=== PATIENT | female | born 1955 | race Caucasian/White ===

== ENCOUNTER 2024-03-25 16:11 | Observation (INO) ==
--- NOTE | 2024-03-25 17:20 | DR.H&P ---
H&P History & Physical for Day of: H&P Date: 03/25/24 Chief Complaint Chief Complaint: Patient is a 68 year old female that is a direct admit to [facility] secondary to COPD exacerbation. Patient reports increasing shortness of breath despite on 2L NC while in office. Patient reports using nebulizer at home with her continuous oxygen therapy. Reports shortness of breath while at rest. Patient will be admitted for further evaluation. Past Medical History Past Medical History: Anemia, Angina, Anxiety, Arthritis, CHF, Coronary Artery Disease, Depression, Dyslipidemia, Migraines, Headaches, Hypertension, Hypothyroidism, Kidney Stones, Liver Disease and DE Past Surgical History Surgical History: Hysterectomy Family History Family Medical History: Diabetes Mellitus, Cancer, DE, Coronary Artery Disease, Heart Failure and Hypertension Medications Home Medications: Home Medications Medication Instructions Recorded Confirmed Type Carvedilol [Coreg] 6.25 mg PO BID 06/19/12 04/24/15 History Enalapril Maleate [Vasotec] 5 mg PO DAILY 06/19/12 04/24/15 History Estradiol 2 mg PO DAILY 06/19/12 04/24/15 History Levothyroxine Sodium 100 mcg PO DAILY 06/19/12 04/24/15 History Vitamin E [E400] 1 tab PO DAILY 07/04/14 04/24/15 History Alprazolam 1 tab PO TID 04/24/15 04/24/15 History acyclovir 5 % topical ointment 1 applic TOP Q4H 04/24/15 04/24/15 History loratadine 10 mg tablet 10 mg PO DAILY 04/24/15 04/24/15 History montelukast 10 mg tablet 10 mg PO HS 04/24/15 04/24/15 History pregabalin 50 mg capsule (Lyrica) 50 mg PO BID 04/24/15 04/24/15 History valacyclovir 1 gram tablet 1 gm PO TID 04/24/15 04/24/15 History Allergies Allergies Allergy/AdvReac Type Severity Reaction Status Date / Time MS Penicillins [Penicillins] Allergy Mild RASH Verified 06/19/12 13:01 MS Tetracyclines Allergy Mild RASH Verified 06/19/12 12:34 [Tetracyclines] MS Levofloxacin Allergy Verified 07/04/14 08:26 [Levofloxacin] MS Methylprednisolone Allergy Verified 07/04/14 08:26 [From Solu-Medrol] MS Valacyclovir Allergy Verified 05/16/15 16:16 [Valacyclovir] MS Sulfa Drugs [Sulfa Drugs] AdvReac Mild RASH Verified 06/19/12 13:02 Review of Systems Constitutional: See HPI Eyes: No Symptoms Reported ENT: No Symptoms Reported Respiratory: Cough, Shortness of Breath, SOB with Excertion and Wheezing Cardiovascular: No Symptoms Reported Gastrointestinal: No Symptoms Reported Genitourinary: No Symptoms Reported Musculoskeletal: Leg Pain Skin: No Symptoms Reported Neurological: Weakness Oriented: Normal Eyes: Normal Ear: Normal Nose: Normal Throat: Normal Respiratory: Diminished Throughout, Rhonchi Throughout and Wheezes Throughout Cardiovascular: Normal : Normal Auscultation: Bowel Sounds: Normal Palpation: Normal Tenderness: Normal Skin: Normal Musculoskeletal: Left and Hip Psychiatric: Anxiety Mood Description: Anxious Affect: Anxious Speech Pattern: Clear Assessment/Plan (1) COPD exacerbation: Status: Acute Plan: Admit to [facility] Continue O2 Therapy Review H&P Reviewed: Yes Patient was examined?: Yes
[2024-03-25 18:52] LABS: BASOPHILS # (AUTO) 0.1 X10^3/uL (0.0-0.1); BASOPHILS % (AUTO) 0.6 % (0.2-1.0); EOSINOPHILS # (AUTO) 0.2 x10^3/uL (0.0-0.2); EOSINOPHILS % (AUTO) 2.4 % (0.9-2.9); HEMATOCRIT 37.2 % (36.0-47.0); HEMOGLOBIN 11.9 g/dL (12.0-16.0); LYMPHOCYTES # (AUTO) 2.6 X10^3/uL (1.3-2.9); LYMPHOCYTES % (AUTO) 25.7 % (21.0-51.0); MEAN CORPUSCULAR HEMOGLOBIN 26.4 pg (27.0-34.0); MEAN CORPUSCULAR VOLUME 82.3 fL (80.0-100.0); MONOCYTES # (AUTO) 0.8 x10^3/uL (0.3-0.8); MONOCYTES % (AUTO) 7.6 % (0.0-13.0); NEUTROPHILS # (AUTO) 6.4 x10^3/uL (2.2-4.8); NEUTROPHILS % (AUTO) 63.7 % (42.0-75.0); PLATELET COUNT 334 X10^3/uL (150.0-450.0); RED BLOOD COUNT 4.51 X10^6/uL (3.5-5.4); RED CELL DISTRIBUTION WIDTH 15.3 % (11.6-16.5)
--- NOTE | 2024-03-25 18:55 | RAD ---
EXAM:CHEST, 1 VIEWHISTORY:copd;COMPARISON:None. br.br.br chestFINDINGS:Heart size is normal. Pulmonary blood flow is normal. There is non-specific coarsening of the interstitial markings. There is elevation of the right hemidiaphragm suggestive of phrenic nerve paralysis. There is questionably a trace right pleural effusion. There is some right basilar opacities suggestive of atelectasis. There is no worrisome left lung opacity or effusion.IMPRESSION:Chronically elevated left hemidiaphragm with right base atelectasis and questionably trace effusion.THIS IS AN ELECTRONICALLY VERIFIED FINAL REPORT03/25/2024 6:52 PM - Electronically signed by Jase Montgomery MD
[2024-03-25 18:59] LABS: ALANINE AMINOTRANSFERASE 35 Units/L (12-78); ALBUMIN 2.3 g/dL (3.4-5.0); ALKALINE PHOSPHATASE 111 Units/L (46-116); ASPARTATE AMINO TRANSFERASE 24 Units/L (15-37); BLOOD UREA NITROGEN 14 mg/dL (7-18); CALCIUM 8.9 mg/dL (8.5-10.1); CARBON DIOXIDE 35.5 mmol/L (21-32); CHLORIDE 95 mmol/L (98-107); COR CA(FOR HYPOALB) 10.3 mg/dL (8.5-10.1); COR NA(FOR HYPERGLY) 139 mmol/L (136-145); CREATININE 0.79 mg/dL (0.55-1.02); GLUCOSE 325 mg/dL (65-99); POTASSIUM 3.9 mmol/L (3.5-5.1); SODIUM 134 mmol/L (136-145); TOTAL PROTEIN 8.4 g/dL (6.4-8.2); eGFR NON BLACK RACES > 60 (>60)
[2024-03-25] MEDS: NS 1,000 ML IV 1,000 ML IV ONE (19:52)
[2024-03-25] MEDS: ROCEPHIN VIAL 1 GRAM 1 G in NS 100 ML IV 100 ML IV SCH (19:52)
[2024-03-25] MEDS: SOLU-Medrol 40 MG VIAL IVP SCH (19:59)
[2024-03-25] MEDS: DUONEB 0.5 MG/3 MG (3 mL) NEB SCH (20:14)
[2024-03-25] MEDS: PULMICORT NEB TX 0.5 MG NEB SCH (20:14)
[2024-03-25] MEDS: NORCO 5/325 MG TAB PO PRN (21:27)
--- NOTE | 2024-03-26 05:43 | RAD ---
PROCEDURE: Chest X-ray 1 View. HISTORY: COPD exacerbation. TECHNIQUE: AP portable view. COMPARISON: 03/25/2024. TECHNICAL QUALITY: Satisfactory. FINDINGS: Normal size heart. Mediastinum and hilar regions show no masses or lymphadenopathy. Normal central vascularity. No pulmonary consolidation, masses, pleural fluid, or pneumothorax. Unchanged elevated right hemidiap hragm. No acute bony abnormality. Posterior fusion visualized thoracolumbar spine with interpeduncular screw s and rods. IMPRESSION: 1. No evidence of active cardiopulmonary disease. 2. Unchanged elevated right hemidiaphragm. THIS IS AN ELECTRONICALLY VERIFIED FINAL REPORT 03/26/2024 5:40 AM - Electronically signed by Ken Viramontes MD
[2024-03-26 05:57] LABS: BASOPHILS % (AUTO) 0.4 % (0.2-1.0); EOSINOPHILS % (AUTO) 0.2 % (0.9-2.9); HEMATOCRIT 36.9 % (36.0-47.0); HEMOGLOBIN 11.8 g/dL (12.0-16.0); LYMPHOCYTES # (AUTO) 1.3 X10^3/uL (1.3-2.9); LYMPHOCYTES % (AUTO) 17.3 % (21.0-51.0); MEAN CORPUSCULAR HEMOGLOBIN 26.4 pg (27.0-34.0); MEAN CORPUSCULAR HGB CONC 32.1 g/dL (33.0-35.0); MEAN CORPUSCULAR VOLUME 82.5 fL (80.0-100.0); MEAN PLATELET VOLUME 8.9 fL (7.4-11.0); MONOCYTES # (AUTO) 0.1 x10^3/uL (0.3-0.8); MONOCYTES % (AUTO) 1.6 % (0.0-13.0); NEUTROPHILS # (AUTO) 5.8 x10^3/uL (2.2-4.8); NEUTROPHILS % (AUTO) 80.5 % (42.0-75.0); PLATELET COUNT 321 X10^3/uL (150.0-450.0); RED BLOOD COUNT 4.48 X10^6/uL (3.5-5.4); RED CELL DISTRIBUTION WIDTH 15.4 % (11.6-16.5)
[2024-03-26 06:06] LABS: WHITE BLOOD COUNT 7.2 X10^3/uL (3.6-10.0)
[2024-03-26 06:07] LABS: GIANT PLATELET RARE; PLATELET MORPHOLOGY COMMENT ABNORMAL (NORMAL)
[2024-03-26 06:08] LABS: ALANINE AMINOTRANSFERASE 39 Units/L (12-78); ALKALINE PHOSPHATASE 108 Units/L (46-116); ASPARTATE AMINO TRANSFERASE 38 Units/L (15-37); BLOOD UREA NITROGEN 15 mg/dL (7-18); CALCIUM 8.5 mg/dL (8.5-10.1); CARBON DIOXIDE 34.5 mmol/L (21-32); CHLORIDE 96 mmol/L (98-107); COR CA(FOR HYPOALB) 10.1 mg/dL (8.5-10.1); COR NA(FOR HYPERGLY) 141 mmol/L (136-145); CREATININE 0.69 mg/dL (0.55-1.02); GLUCOSE 394 mg/dL (65-99); POTASSIUM 4.6 mmol/L (3.5-5.1); SODIUM 134 mmol/L (136-145); TOTAL PROTEIN 8.1 g/dL (6.4-8.2); eGFR NON BLACK RACES > 60 (>60)
[2024-03-26] MEDS: LYRICA CAP 50 mg PO SCH (13:19)
[2024-03-26] MEDS: SYNTHROID 100 mcg TAB PO SCH (13:20)
[2024-03-26] MEDS: CLARITIN PO SCH (13:20)
[2024-03-26 14:01] LABS: BILIRUBIN,URINE NEGATIVE (NEGATIVE); BLOOD/HEMOGLOBIN,URINE 1+ (NEGATIVE); GLUCOSE, URINE 4+ (NEGATIVE); KETONES,URINE 1+ (NEGATIVE); LEUKOCYTE ESTERASE ,URINE NEGATIVE (NEGATIVE); NITRITES,URINE NEGATIVE (NEGATIVE); PROTEIN,URINE NEGATIVE (NEGATIVE); UROBILINOGEN,URINE NORMAL (NORMAL)
[2024-03-26 14:09] LABS: APPEARANCE,URINE CLEAR (CLEAR); COLOR,URINE YELLOW (YELLOW)
[2024-03-26 14:15] LABS: BACTERIA,URINE TRACE /HPF (NEGATIVE); SQUAMOUS EPITHELIAL CELL,UR RARE /HPF (NEGATIVE)
--- NOTE | 2024-03-26 16:54 | CT ---
EXAM: CHEST WITH CONTRAST HISTORY: sob, copd, pneumonia; COMPARISON: None. TECHNIQUE: Following the intravenous administration of iodinated contrast, spiral CT imaging was performed throu gh the chest and axial, coronal, and sagittal CT images were generated. FINDINGS: The heart size is normal. There is atherosclerosis in the LAD. There are some reactive size mediast inal lymph nodes. The airways are grossly clear. There is some bronchiectasis in the right lower lo be. There is non-specific multi lobar opacity more pronounced in the right lung. The opacity in the right lung is suggestive of pneumonia while the opacities in the left lung are more suggestive of sc arring. There is severe fatty infiltration of the liver. This can be due to alcohol abuse, certain prescription medications, and due to a low-carbohydrate diet. Fructose is processed in the liver in the same metabolic pathway as alcohol which results in intracellular accumulation of lipid within the hepatocytes. This can be rapidly corrected with a low-carbohydrate diet and is exacerbated by a low -fat diet. Upper abdominal structures are otherwise grossly unremarkable. There is no acute bony ab normality. There is extensive surgical change in the thoracic spine. IMPRESSION: 1. Non-specific opacity in the right lung suggestive of pneumonia. 2. Stranding in the left lung suggestive of scarring. 3. Severe fatty infiltration of the liver. THIS IS AN ELECTRONICALLY VERIFIED FINAL REPORT 03/26/2024 4:51 PM - Electronically signed by Jase Montgomery MD
[2024-03-26] MEDS: NS 1,000 ML IV 1,000 ML IV SCH (17:00)
[2024-03-26] MEDS: NovoLIN R (or HumuLIN R) SC PRN (17:10)
[2024-03-26 17:21] VITALS: BMI 25.9
--- NOTE | 2024-03-26 17:33 | PCM.PROG ---
Progress Note Progress Note for Day of Date of Exam: 03/26/24 Subjective Subjective: Patient is a 68 year old female who was a direct admit yesterday from Dr. Farrell's office for treatment of COPD exacerbation after failing outpatient treatment. Patient is 02 dependent. Upon admission, patient was started on IV hydration, IV solumedrol, IV rocephin. We obtained a sputum cu lture, urine culture and chest xray- which showed chronically elevated left hemidaphragm with right base atelectasis and questionably trace effusion. Admission labs: wbc 10, hgb 11.9, bun 14/creatinine 0.79. This morning we obtained a repeat chest xray that showed "No evidence of active cardiopulmonary disease. Unchanged elevated right hemidiaphragm." AM labs: wbc 7.2, hgb 11.8, bun 15/creatinine 0.69. Past Medical Family Social History Allergies: Allergies Penicillins Allergy (Mild, Verified 03/26/24 07:47) RASH tetracycline Allergy (Mild, Verified 03/26/24 07:47) RASH levofloxacin Allergy (Unknown, Verified 03/26/24 07:47) valacyclovir Allergy (Unknown, Verified 03/26/24 07:47) methylprednisolone [From Solu-Medrol] Adverse Reaction (Mild, Verified 03/26/24 07:47) Sulfa (Sulfonamide Antibiotics) [SULFA] Adverse Reaction (Mild, Verified 03/26/24 07:47) RASH Vital Signs and I&O's Vital Signs: Vital Signs Temperature 98.1 F Pulse Rate 106 Pulse Rate 108 Pulse Rate 110 Pulse Rate 111 Pulse Rate 112 Pulse Rate 112 Pulse Rate 112 Pulse Rate 110 Pulse Rate 112 Pulse Rate 109 Pulse Rate 115 Pulse Rate 109 Pulse Rate 107 Pulse Rate 108 Pulse Rate 110 Pulse Rate 109 Pulse Rate 112 Pulse Rate 113 Pulse Rate 114 Pulse Rate 116 Pulse Rate 114 Pulse Rate 116 Pulse Rate 119 Blood Pressure 143/63 Blood Pressure 135/61 Blood Pressure 140/65 Blood Pressure 140/65 Blood Pressure 160/67 Blood Pressure 146/64 Blood Pressure 143/77 O2 Sat by Pulse Oximetry 96 O2 Sat by Pulse Oximetry 93 O2 Sat by Pulse Oximetry 94 O2 Sat by Pulse Oximetry 94 O2 Sat by Pulse Oximetry 97 O2 Sat by Pulse Oximetry 95 O2 Sat by Pulse Oximetry 92 O2 Sat by Pulse Oximetry 94 O2 Sat by Pulse Oximetry 97 O2 Sat by Pulse Oximetry 96 O2 Sat by Pulse Oximetry 94 O2 Sat by Pulse Oximetry 94 O2 Sat by Pulse Oximetry 96 O2 Sat by Pulse Oximetry 95 O2 Sat by Pulse Oximetry 96 O2 Sat by Pulse Oximetry 95 O2 Sat by Pulse Oximetry 94 O2 Sat by Pulse Oximetry 94 O2 Sat by Pulse Oximetry 98 O2 Sat by Pulse Oximetry 95 O2 Sat by Pulse Oximetry 96 O2 Sat by Pulse Oximetry 95 O2 Sat by Pulse Oximetry 95 O2 Sat by Pulse Oximetry 95 Intake and Output: Intake & Output 03/24/24 03/25/24 03/26/24 03/27/24 11:59 11:59 11:59 11:59 Intake Total 893 / 893 673 / 673 Balance 893 / 893 673 / 673 Physical Exam Oriented: Normal Eyes: Normal Ear: Normal Nose: Normal Throat: Normal Respiratory: Diminished Cardiovascular: Normal : Normal Auscultation: Bowel Sounds: Normal Tenderness: Normal Skin: Normal Musculoskeletal: Left, Hip, Back:Lumbar, Deformity (lower extremity muscle atrophy) and Motor Deficit (bilateral lower extremities) Psychiatric: Anxiety Mood Description: Anxious Affect: Anxious Speech Pattern: Clear and Appropriate Laboratory and Diagnostics 03/26/24 04:05 03/26/24 16:30 Labs: 03/26/24 10:35 Sputum - Expectorated Sputum - Final Laboratory WBC 7.2 X10^3/uL (3.6-10.0) 03/26/24 04:05 RBC 4.48 X10^6/uL (3.5-5.4) 03/26/24 04:05 Hgb 11.8 g/dL (12.0-16.0) L 03/26/24 04:05 Hct 36.9 % (36.0-47.0) 03/26/24 04:05 MCV 82.5 fL (80.0-100.0) 03/26/24 04:05 MCH 26.4 pg (27.0-34.0) L 03/26/24 04:05 MCHC 32.1 g/dL (33.0-35.0) L 03/26/24 04:05 RDW 15.4 % (11.6-16.5) 03/26/24 04:05 Plt Count 321 X10^3/uL (150.0-450.0) 03/26/24 04:05 Plt Count Comment Adequate (ADEQUATE) 03/26/24 04:05 MPV 8.9 fL (7.4-11.0) 03/26/24 04:05 Neut % (Auto) 80.5 % (42.0-75.0) H 03/26/24 04:05 Lymph % (Auto) 17.3 % (21.0-51.0) L 03/26/24 04:05 [place] % (Auto) 1.6 % (0.0-13.0) 03/26/24 04:05 Eos % (Auto) 0.2 % (0.9-2.9) L 03/26/24 04:05 Baso % (Auto) 0.4 % (0.2-1.0) 03/26/24 04:05 Neut # (Auto) 5.8 x10^3/uL (2.2-4.8) H 03/26/24 04:05 Lymph # (Auto) 1.3 X10^3/uL (1.3-2.9) 03/26/24 04:05 [place] # (Auto) 0.1 x10^3/uL (0.3-0.8) L 03/26/24 04:05 Eos # (Auto) 0.0 x10^3/uL (0.0-0.2) 03/26/24 04:05 Baso # (Auto) 0.0 X10^3/uL (0.0-0.1) 03/26/24 04:05 Absolute Nucleated RBC 0.5 /100WBC 03/26/24 04:05 Plt Clumps, EDTA Rare 03/26/24 04:05 Giant Platelets Rare 03/26/24 04:05 Plt Morphology Comment Abnormal (NORMAL) A 03/26/24 04:05 RBC Morphology Normal (NORMAL) 03/26/24 04:05 Sodium 134 mmol/L (136-145) L 03/26/24 04:05 Corrected Sodium 141 mmol/L (136-145) 03/26/24 04:05 Potassium 4.6 mmol/L (3.5-5.1) 03/26/24 04:05 Chloride 96 mmol/L (98-107) L 03/26/24 04:05 Carbon Dioxide 34.5 mmol/L (21-32) H 03/26/24 04:05 BUN 15 mg/dL (7-18) 03/26/24 04:05 Creatinine 0.69 mg/dL (0.55-1.02) 03/26/24 04:05 Est GFR (MDRD) Af Amer > 60 (>60) 03/26/24 04:05 Est GFR (MDRD) Non-Af > 60 (>60) 03/26/24 04:05 Glucose 559 mg/dL (65-99) H* 03/26/24 16:30 POC Glucose (mg/dL) 502 mg/dL (65-99) H* 03/26/24 16:11 Calcium 8.5 mg/dL (8.5-10.1) 03/26/24 04:05 Corrected Calcium 10.1 mg/dL (8.5-10.1) 03/26/24 04:05 Total Bilirubin 0.30 mg/dL (0.2-1.0) 03/26/24 04:05 AST 38 Units/L (15-37) H 03/26/24 04:05 ALT 39 Units/L (12-78) 03/26/24 04:05 Alkaline Phosphatase 108 Units/L (46-116) 03/26/24 04:05 Total Protein 8.1 g/dL (6.4-8.2) 03/26/24 04:05 Albumin 2.0 g/dL (3.4-5.0) L 03/26/24 04:05 Globulin 6.1 g/dL (2.5-4.5) H 03/26/24 04:05 Albumin/Globulin Ratio 0.3 Ratio (1.1-2.1) L 03/26/24 04:05 Specimen Type Clean catch urine 03/26/24 13:30 Urine Color Yellow (YELLOW) 03/26/24 13:30 Urine Appearance Clear (CLEAR) 03/26/24 13:30 Urine pH 6.0 (5.0 - 8.0) 03/26/24 13:30 Ur Specific [place] 1.015 (1.000-1.030) 03/26/24 13:30 Urine Protein Negative (NEGATIVE) 03/26/24 13:30 Urine Glucose (UA) 4+ (NEGATIVE) 03/26/24 13:30 Urine Ketones 1+ (NEGATIVE) 03/26/24 13:30 Urine Blood 1+ (NEGATIVE) 03/26/24 13:30 Urine Nitrite Negative (NEGATIVE) 03/26/24 13:30 Urine Bilirubin Negative (NEGATIVE) 03/26/24 13:30 Urine Urobilinogen Normal (NORMAL) 03/26/24 13:30 Ur Leukocyte Esterase Negative (NEGATIVE) 03/26/24 13:30 Urine RBC 5-10 /HPF (0-3) A 03/26/24 13:30 Urine WBC None seen /HPF (0-5) 03/26/24 13:30 Ur Squamous Epith Cells Rare /HPF (NEGATIVE) 03/26/24 13:30 Urine Bacteria Trace /HPF (NEGATIVE) 03/26/24 13:30 Ur Culture Indicated? Yes/culture set up 03/26/24 13:30 Plan (1) COPD exacerbation: Status: Acute Plan: obtain ct chest, abg. Continue IV hydration, IV abx, IV steroid, resume home medications, 02 therapy.
[2024-03-26] MEDS: COREG TAB 6.25 MG PO SCH (21:11)
[2024-03-26] MEDS: SINGULAIR TAB 10 MG PO SCH (21:11)
[2024-03-27 00:32] VITALS: RESP 22
[2024-03-27 04:56] LABS: BASOPHILS % (AUTO) 0.3 % (0.2-1.0); HEMATOCRIT 36.5 % (36.0-47.0); HEMOGLOBIN 11.7 g/dL (12.0-16.0); LYMPHOCYTES # (AUTO) 1.5 X10^3/uL (1.3-2.9); LYMPHOCYTES % (AUTO) 15.3 % (21.0-51.0); MEAN CORPUSCULAR HEMOGLOBIN 26.1 pg (27.0-34.0); MEAN CORPUSCULAR VOLUME 81.6 fL (80.0-100.0); MEAN PLATELET VOLUME 8.2 fL (7.4-11.0); MONOCYTES # (AUTO) 0.4 x10^3/uL (0.3-0.8); MONOCYTES % (AUTO) 4.3 % (0.0-13.0); NEUTROPHILS # (AUTO) 7.9 x10^3/uL (2.2-4.8); NEUTROPHILS % (AUTO) 80.1 % (42.0-75.0); PLATELET COUNT 372 X10^3/uL (150.0-450.0); RED BLOOD COUNT 4.47 X10^6/uL (3.5-5.4); RED CELL DISTRIBUTION WIDTH 15.2 % (11.6-16.5); WHITE BLOOD COUNT 9.9 X10^3/uL (3.6-10.0)
[2024-03-27 05:13] LABS: ALANINE AMINOTRANSFERASE 50 Units/L (12-78); ALBUMIN 2.3 g/dL (3.4-5.0); ALKALINE PHOSPHATASE 97 Units/L (46-116); ASPARTATE AMINO TRANSFERASE 36 Units/L (15-37); BLOOD UREA NITROGEN 17 mg/dL (7-18); CALCIUM 8.9 mg/dL (8.5-10.1); CARBON DIOXIDE 34.8 mmol/L (21-32); CHLORIDE 101 mmol/L (98-107); COR CA(FOR HYPOALB) 10.3 mg/dL (8.5-10.1); COR NA(FOR HYPERGLY) 141 mmol/L (136-145); CREATININE 0.64 mg/dL (0.55-1.02); GLUCOSE 180 mg/dL (65-99); POTASSIUM 3.9 mmol/L (3.5-5.1); SODIUM 139 mmol/L (136-145); TOTAL PROTEIN 8.2 g/dL (6.4-8.2); eGFR NON BLACK RACES > 60 (>60)
[2024-03-27] MEDS: ZITHROMAX INJ 500 MG VIAL 500 MG in NS 250 ML IV 250 ML IV SCH (09:20)
[2024-03-27] MEDS: ZOLOFT PO SCH (09:20)
[2024-03-27] MEDS: SOLU-Medrol 40 MG VIAL IVP SCH (09:22)
[2024-03-27 09:30] LABS: ABG ALLEN TEST POS; ABG HCO3 32.5 mmol/L (22-26)
[2024-03-27] MEDS: LOVENOX INJ 40 MG SYR SC SCH (11:20)
[2024-03-28 08:15] VITALS: BP 159/67; TEMP 98
[2024-03-28 08:48] VITALS: PULSE 109; O2SAT 97
--- NOTE | 2024-03-28 11:08 | RAD ---
EXAMINATION:CHEST, 1 VIEWHISTORY:WHEEZING/SOB; .COMPARISON STUDY:03/26/2024TECHNIQUE:A single view of the chest was obtained.FINDINGS:. Heart size is normal. No acute infiltrates. There is no pneumothorax. Hilar and mediastinal structures and bony structures are unremarkable. Elevated right hemidiaphragm. Previous fusion in the spine with rods and bone screws in place. Bronchial thickening is noted..IMPRESSION:No acute process in the chest.THIS IS AN ELECTRONICALLY VERIFIED FINAL REPORT03/28/2024 11:05 AM - Electronically signed by Gerber Martínez MD
== END 2024-03-28 13:00 | disposition home health service (06) ==
LOC: ICU
PROVIDERS: ADMIT Internal Medicine; ATTEND Internal Medicine
DX: E03.8 Other specified hypothyroidism; I25.10 Atherosclerotic heart disease of native coronary artery without angina pectoris; R06.02 Shortness of breath; E87.1 Hypo-osmolality and hyponatremia; E11.65 Type 2 diabetes mellitus with hyperglycemia; J18.8 Other pneumonia, unspecified organism; B96.29 Other Escherichia coli [E. coli] as the cause of diseases classified elsewhere; Z99.81 Dependence on supplemental oxygen; J44.1 Chronic obstructive pulmonary disease with (acute) exacerbation; E78.5 Hyperlipidemia, unspecified; B95.61 Methicillin susceptible Staphylococcus aureus infection as the cause of diseases classified elsewhere; K76.0 Fatty (change of) liver, not elsewhere classified; R26.81 Unsteadiness on feet; F41.8 Other specified anxiety disorders; I10 Essential (primary) hypertension